=== PATIENT | male | born 1975 | race Native Hawaiian/Other Pacific Islander ===

== ENCOUNTER 2016-09-27 19:09 | Emergency (ER) | payer OTHER ==
--- NOTE | 2016-09-27 23:46 | XRay Report ---
FINAL REPORT EXAM: XR HIP 2-3V LT HISTORY: LEFT HIP PAIN TECHNIQUE: Left hip and AP pelvis PRIORS: None. FINDINGS: No fracture identified. No dislocation seen. Femoral head maintains a normal contour. Joint spaces within normal limits. Adjacent bony pelvis is unremarkable IMPRESSION: Negative hip series
[2016-09-27] MEDS ORDERED: TYLENOL PO ONE (23:47)
[2016-09-27] MEDS ORDERED: TORADOL IM ONE (23:47)
--- NOTE | 2016-09-27 23:47 | XRay Report ---
FINAL REPORT EXAM: XR KNEE 1-2V LT HISTORY: LEFT KNEE PAIN TECHNIQUE: Left knee views PRIORS: None. FINDINGS: No fracture is identified. No dislocation seen. No evidence of joint effusion. Patella demonstrates normal positioning. No acute bony abnormality identified. IMPRESSION: Negative knee series
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
--- NOTE | 2016-09-28 00:12 | XRay Report ---
FINAL REPORT EXAM: XR SPINE CERVICAL 2-3V HISTORY: NECK AND BACK PAIN COMPARISON: None available. FINDINGS: Three views of the cervical spine obtained. Cervical vertebral body heights and disc heights are preserved. Prevertebral soft tissues are within normal limits. Odontoid process grossly intact. IMPRESSION: Normal height and alignment of the cervical spine.
[2016-09-28 00:13] VITALS: BP 138/77
== END 2016-09-28 00:13 | disposition home or self-care (01) ==
LOC: ED 19:09
DX: M25.562 Pain in left knee (principal); M25.552 Pain in left hip; V49.50XA Passenger injured in collision with unspecified motor vehicles in traffic accident, initial encounter; Y93.89 Activity, other specified; Y92.89 Other specified places as the place of occurrence of the external cause; Y99.8 Other external cause status
CPT/HCPCS: 72040; 73502; 73560; 96372; 99284; J1885